=== PATIENT | male | born 1975 | race Caucasian/White ===

== ENCOUNTER 2018-05-12 17:29 | Inpatient (IN) | END 2018-05-25 18:41 | disposition home or self-care (01) | DRG 871 ==

== ENCOUNTER 2019-02-18 08:49 | Emergency (ER) | payer MEDICAID, OTHER ==
[~2019-02-18] VITALS: Ht 162.6 cm; Wt 73.4 kg
[~2019-02-18 08:49] MED LIST: BENZ1LOZ4 MT; D-ME473S2 PO; GUAI-637 PO; HYDR25CA98 PO; IBUP-1542 PO; LEVO750T25 PO; VORI50TA PO
[2019-02-18 09:04] VITALS: BP 160/101; PULSE 89; RESP 18; Ht 162.6 cm; Wt 73.4 kg
--- NOTE | 2019-02-18 09:56 | ERD ---
ER Documentation Chief Complaint Chief Complaint coughing up blood this am HPI 44-year-old male with history of fungal pneumonia requiring hospital admission one year ago presents with complaint of coughing up blood this morning. Patient states that given his history of admission for pneumonia and is concerned and would like testing. Patient states that he has a history of hypertension and his blood pressure always goes up at doctor's visits but is normal otherwise. Patient states that he notices the blood in his sputum when he coughs but otherwise there is no blood coming up. Patient denies any chest pain, shortness of breath, lightheadedness, dizziness, heart palpitations, fevers, chills, wheezing. ROS All systems reviewed and are negative except as per history of present illness. Medications Home Meds Active Scripts Voriconazole* (Voriconazole*) 50 Mg Tablet, 100 MG PO Q12 for 30 Days, #60 TAB Prov:ALAN SCHNEIDER S. 05/25/18 Levofloxacin* (Levaquin*) 750 Mg Tablet, 750 MG PO DAILY for 10 Days, #10 TAB Prov:ALAN SCHNEIDER S. 05/25/18 Benzocaine/Menthol (SORE THROAT LOZENGE) 1 Each Lozenge, 1 LOZENGE MT Q1H PRN for SORE THROAT, #1 BOTTLE 2 Refills Prov:ALAN SCHNEIDER S. 05/25/18 Guaifenesin (Guaifenesin) 100 Mg/5 Ml Liquid, 200 MG PO Q4H PRN for COUGH, #1 BOTTLE 2 Refills Prov:ALAN SCHNEIDER S. 05/25/18 Reported Medications Hydroxyzine Pamoate* (Hydroxyzine Pamoate*) 25 Mg Capsule, 25 MG PO HS, #30 CAP 05/13/18 Dextromethorphan Hb-Promethazine Hcl* (Promethazine DM* Syrup) 473 Ml Syrup, 10 ML PO Q6 PRN for COUGH, ML 05/13/18 Ibuprofen* (Ibuprofen*) 600 Mg Tablet, 600 MG PO Q8 PRN for PAIN, TAB 05/13/18 Allergies Allergies: Coded Allergies: No Known Allergy (Verified , 02/13/16) PMhx/Soc History of Surgery: No Anesthesia Reaction: No Hx Neurological Disorder: Yes (meningitis) Hx Respiratory Disorders: Yes (hx pneumonia) Hx Cardiac Disorders: Yes (HTN) Hx Psychiatric Problems: No Hx Miscellaneous Medical Probl: No Hx Alcohol Use: Yes (occational) Hx Substance Use: No Hx Tobacco Use: No Smoking Status: Never smoker FmHx Family History: No diabetes, No coronary disease, No other Physical Exam Vitals Vital Signs Date Temp Pulse Resp B/P (MAP) Pulse Ox O2 O2 Flow FiO2 Time Delivery Rate 02/18/19 98.5 89 18 160/101 98 09:04 (120) Physical Exam Const: No acute distress Head: Atraumatic Eyes: Normal Conjunctiva ENT: Normal External Ears, Nose and Mouth. Neck: Full range of motion. No meningismus. Resp: Clear to auscultation bilaterally Cardio: Regular rate and rhythm, no murmurs Abd: Soft, non tender, non distended. Normal bowel sounds Skin: No petechiae or rashes Back: No midline or flank tenderness Ext: No cyanosis, or edema Neur: Awake and alert Psych: Normal Mood and Affect Result Diagram: 02/18/1932 02/18/19 0932 Results 24 hrs Laboratory Tests Test 02/18/19 09:32 White Blood Count 9.0 10^3/ul Red Blood Count 5.68 10^6/ul Hemoglobin 15.3 g/dl Hematocrit 45.8 % Mean Corpuscular Volume 80.6 fl Mean Corpuscular Hemoglobin 26.9 pg Mean Corpuscular Hemoglobin Concent 33.4 g/dl Red Cell Distribution Width 13.2 % Platelet Count 352 10^3/UL Mean Platelet Volume 9.8 fl Immature Granulocytes % 2.100 % Neutrophils % 69.8 % Lymphocytes % 17.8 % Monocytes % 8.5 % Eosinophils % 0.8 % Basophils % 1.0 % Nucleated Red Blood Cells % 0.0 /100WBC Immature Granulocytes # 0.190 10^3/ul Neutrophils # 6.3 10^3/ul Lymphocytes # 1.6 10^3/ul Monocytes # 0.8 10^3/ul Eosinophils # 0.1 10^3/ul Basophils # 0.1 10^3/ul Nucleated Red Blood Cells # 0.0 10^3/ul Prothrombin Time 12.0 Sec Prothrombin Time Ratio 0.9 INR International Normalized Ratio 0.88 Activated Partial Thromboplast Time 29.2 Sec Sodium Level 144 mmol/L Potassium Level 4.7 mmol/L Chloride Level 108 mmol/L Carbon Dioxide Level 26 mmol/L Anion Gap 10 Blood Urea Nitrogen 28 mg/dl Creatinine 1.02 mg/dl Est Glomerular Filtrat Rate mL/min > 60 mL/min Glucose Level 143 mg/dl Calcium Level 9.9 mg/dl Total Bilirubin 0.7 mg/dl Direct Bilirubin 0.00 mg/dl Indirect Bilirubin 0.7 mg/dl Aspartate Amino Transf (AST/SGOT) 24 IU/L Alanine Aminotransferase (ALT/SGPT) 28 IU/L Alkaline Phosphatase 100 IU/L Total Protein 8.7 g/dl Albumin 4.8 g/dl Globulin 3.90 g/dl Albumin/Globulin Ratio 1.23 Procedures/MDM DIAGNOSTIC IMAGING REPORT Patient: ROB MOLINA : 1975 Age: 44 Sex: M MR #: [id number] DOS: 02/18/19 0923 Ordering MD: BARBARA MCKEON Location: [facility] Room/Bed: PROCEDURE: XR Chest. CLINICAL INDICATION: Hemoptysis TECHNIQUE: Single frontal view of the chest was obtained COMPARISON: CT CHEST 05/25/2018; DR CHEST 05/22/2018 FINDINGS: Reticular opacities of the left mid lung zone may be sequela of prior infectious/inflammatory process when comparing to 05/25/2018 CT. No pneumothorax or pleural effusions. Cardiomediastinal silhouette is within normal limits. IMPRESSION: Reticular opacities of the left mid lung zone may be sequela of prior infectious/inflammatory process when compared to 05/25/2018 CT. Underlying active disease is less likely but cannot be entirely excluded. If the symptoms persist consider further evaluation with chest CT. RPTAT: PP Physician Ritchie Date Time Electronically viewed and signed by Physician Ritchie on 02/18/2019 11:04 rV/ CC: BARBARA MCKEON [phone] MDM: Patient's labs within normal limits however chest x-ray showed reticular opacities which could represent a current pneumonia. Patient will be treated with azithromycin. I have low suspicition for acute coronary syndrome, pulmonary embolism, aortic dissection, AAA, pneumothorax, esophageal rupture, pericarditis, myocarditis based on imaging, labs, patient history and exam. Patient discharged with strict ER precautions. Patient advised to follow up with PMD. All questions answered at discharge. At this time, patient is stable for discharge and outpatient management. I have instructed the patient to follow-up with his/her primary care physician in 1-2 days. I have discussed with the patient the possibility of needing to see a specialist for further workup and imaging studies if symptoms persist. I have instructed the patient to promptly return to the ER for any new or worsening symptoms including but not limited to increased pain, fever, nausea, vomiting, weakness or LOC. The patient and/or family expressed understanding of and agreement with this plan. All questions were answered. Home care instructions were provided. DISCLAIMER: Inadvertent spelling and grammatical errors are likely due to EHR/dictation software use and do not reflect on the overall quality of patient care. Also, please note that the electronic time recorded on this note does not necessarily reflect the actual time of the patient encounter. Departure Diagnosis: Primary Impression: Pneumonia Condition: Stable BARBARA MCKEON Feb 18, 2019 09:56
[2019-02-18] MEDS ORDERED: AZIT250T PO (11:26)
[2019-02-18] MEDS ORDERED: D-ME473S2 PO (11:27)
== END 2019-02-18 11:36 | disposition home or self-care (01) ==
LOC: FTE 08:49
DX: J18.9 Pneumonia, unspecified organism (principal); I10 Essential (primary) hypertension
CPT/HCPCS: 36415; 71045; 80053; 85025; 85610; 85730; Z7502